=== PATIENT | female | born 1970 | race Caucasian/White ===

== ENCOUNTER 2018-07-19 00:40 | Emergency (ER) | payer BC ==
[2018-07-19] MEDS ORDERED: Famotidine 20 MG TAB ONE (01:05)
[2018-07-19] MEDS ORDERED: predniSONE 20 MG TAB ONE (01:13)
== END 2018-07-19 01:00 | disposition home or self-care (01) ==
LOC: SCSER 00:40
DX: T78.40XA Allergy, unspecified, initial encounter (principal); G43.909 Migraine, unspecified, not intractable, without status migrainosus; F41.9 Anxiety disorder, unspecified; F32.9 Major depressive disorder, single episode, unspecified; Z79.899 Other long term (current) drug therapy
CPT/HCPCS: 99283; J7506

== ENCOUNTER 2020-01-28 09:12 | Outpatient (CLI) | payer BC ==
--- NOTE | 2020-01-28 10:25 | MMO ---
Bilateral MAMMO Bilat Diag [facility]. CLINICAL HISTORY: Patient is 49 years old and is seen for diagnostic exam and lump or thickening in both breasts. The patient has the following family history of breast cancer: paternal grandmother, at age 40. The patient has no personal history of cancer. VIEWS: The views performed were: bilateral craniocaudal with tomosynthesis; bilateral mediolateral oblique with tomosynthesis; bilateral mediolateral with tomosynthesis; and bilateral exaggerated craniocaudal. FILMS COMPARED: The present examination has been compared to prior imaging studies performed at [facility] on 09/27/2019, at [facility] on 01/28/2020, and at [facility] on 09/27/2019. This study has been interpreted with the assistance of computer-aided detection. MAMMOGRAM FINDINGS: The breasts are extremely dense, which may lower the sensitivity of mammography. Finding 1: There are stable benign appearing calcifications seen in both breasts. Finding 2: There are multiple round masses of varying size with circumscribed margins seen in both breasts. Cysts There are no suspicious masses, suspicious calcifications, or new areas of architectural distortion. IMPRESSION: THERE IS NO MAMMOGRAPHIC EVIDENCE OF MALIGNANCY. A ROUTINE FOLLOW-UP MAMMOGRAM IN 1 YEAR IS RECOMMENDED. THE RESULTS OF THIS EXAM WERE SENT TO THE PATIENT. ACR BI-RADS Category 2 - Benign finding MAMMOGRAPHY NOTE: 1. A negative mammogram report should not delay a biopsy if a dominant of clinically suspicious mass is present. 2. Approximately 10% to 15% of breast cancers are not detected by mammography. 3. Adenosis and dense breasts may obscure an underlying neoplasm. Reported by: JOHN DOBBS MD Electonically Signed: [id number]
--- NOTE | 2020-01-28 12:21 | ULT ---
RIGHT BREAST ULTRASOUND LEFT BREAST ULTRASOUND: Date: 01/28/2020 HISTORY: Multiple right breast palpable masses. FINDINGS: RIGHT BREAST: In the 10 o'clock position of the right breast, there is a slightly bilobed cyst accounting for the p alpable finding measuring approximately 2.9 cm in size. A palpable finding at 3 o'clock in the right breast is a benign cyst measuring up to approximately 2.6 cm in size. LEFT BREAST: Palpable finding at 2 o'clock region of the left breast represents two adjacent cysts, the largest of which measures approximately 2.3 cm in size. In the 3 o'clock position, there is an additional benig n cyst up to 3.3 cm in size. IMPRESSION: 1. Multiple bilateral palpable findings all represent simple benign cysts with numerous other simple benign cysts noted throughout both right and left breast. 2. BI-RADS Category 2 - Benign findings. Continue annual follow-up screening mammograms. Findings were discussed with the patient.
== END 2020-01-28 09:13 | disposition home or self-care (01) ==
LOC: BICMAMMO 09:12
PROVIDERS: ATTEND Specialist
DX: N64.4 Mastodynia (principal); N63.10 Unspecified lump in the right breast, unspecified quadrant; N63.20 Unspecified lump in the left breast, unspecified quadrant; N60.02 Solitary cyst of left breast; N60.01 Solitary cyst of right breast
CPT/HCPCS: 77066; G0279

== ENCOUNTER 2024-11-05 10:53 | Outpatient (CLI) | payer BC | END 2024-11-05 10:54 | disposition home or self-care (01) | LOC: BICRAD 10:53 | PROVIDERS: ATTEND Specialist | DX: S22.32XA Fracture of one rib, left side, initial encounter for closed fracture (principal) ==

== ENCOUNTER 2025-09-06 13:29 | Outpatient (CLI) | payer BC ==
[2025-09-06] MEDS ORDERED: GASTROGRAFIN 30 ML BOT ONE (13:34)
[2025-09-06] MEDS ORDERED: Iopamidol 370 76% 100 ML VIAL ONE (13:34)
== END 2025-09-06 13:30 | disposition home or self-care (01) ==
LOC: CT 13:29
PROVIDERS: ATTEND Physician Assistant Medical
DX: K58.0 Irritable bowel syndrome with diarrhea (principal); K62.5 Hemorrhage of anus and rectum; R10.20 Pelvic and perineal pain unspecified side
CPT/HCPCS: 74177